=== PATIENT | female | born 1960 | race Asian ===

== ENCOUNTER 2018-11-05 08:00 | Emergency (ER) | payer MEDICAID ==
[~2018-11-05] VITALS: Ht 154.9 cm; Wt 69.0 kg
[~2018-11-05 08:00] MED LIST: DIPH-423 PO; FAMO-1 PO; LOPE-144 PO; ONDA4TAB12 PO; PRED20TA PO; [UNRECOGNIZED DRUG - CODE] PO
[2018-11-05 08:15] VITALS: BP 137/92
[2018-11-05] MEDS ORDERED: LIDOcaine 5% patch TP ONE (08:25)
[2018-11-05] MEDS ORDERED: GABA-530 PO (08:29)
== END 2018-11-05 08:46 | disposition home or self-care (01) ==
LOC: ER 08:00
DX: M54.81 Occipital neuralgia (principal); I10 Essential (primary) hypertension; E11.9 Type 2 diabetes mellitus without complications; Z79.899 Other long term (current) drug therapy
CPT/HCPCS: 99283

== ENCOUNTER 2019-02-09 10:20 | Emergency (ER) | payer MEDICAID ==
[~2019-02-09] VITALS: Ht 152.4 cm; Wt 71.0 kg
[~2019-02-09 10:20] MED LIST changes: +GABA-530 PO
[2019-02-09 10:23] VITALS: BP 127/83
--- NOTE | 2019-02-09 10:43 | NUR ---
awaiting ed provider.
[2019-02-09] MEDS ORDERED: ibuprofen tablet 400 MG TABLET PO ONE (10:55)
[2019-02-09] MEDS ORDERED: LIDO700A32 TOP (12:19)
== END 2019-02-09 12:24 | disposition home or self-care (01) ==
LOC: ER 10:21
DX: R07.89 Other chest pain (principal); I10 Essential (primary) hypertension; J45.909 Unspecified asthma, uncomplicated; E11.9 Type 2 diabetes mellitus without complications; Z79.899 Other long term (current) drug therapy
CPT/HCPCS: 71045; 99283

== ENCOUNTER 2019-05-19 04:35 | Emergency (ER) | payer MEDICAID ==
[~2019-05-19] VITALS: Ht 152.4 cm; Wt 70.0 kg
[~2019-05-19 04:35] MED LIST changes: +LIDO700A32 TOP
[2019-05-19 04:39] VITALS: BP 149/91
[2019-05-19] MEDS ORDERED: cyclobenzaprine 10mg tablet PO ONE (05:30)
[2019-05-19] MEDS ORDERED: ketorolac trometh inj. 60 MG/2 ML VIAL IM ONE (05:30)
[2019-05-19] MEDS ORDERED: CYCL-1 PO (05:40)
[2019-05-19] MEDS ORDERED: NAPR-56 PO (05:40)
== END 2019-05-19 06:08 | disposition home or self-care (01) ==
LOC: ER 04:36
DX: M54.40 Lumbago with sciatica, unspecified side (principal); I10 Essential (primary) hypertension; J45.909 Unspecified asthma, uncomplicated; E11.9 Type 2 diabetes mellitus without complications; Z79.899 Other long term (current) drug therapy
CPT/HCPCS: 72100; 96372; 99283; J1885

== ENCOUNTER 2021-04-14 08:53 | Emergency (ER) | payer MEDICAID ==
[~2021-04-14] VITALS: Ht 152.4 cm; Wt 72.7 kg
[~2021-04-14 08:53] MED LIST changes: +CYCL-1 PO
[2021-04-14 13:39] LABS: CLARITY,URINE SLIGHTLY CLOUDY (Clear); COLOR,URINE YELLOW (Yellow); GLUCOSE, URINE >=1000 mg/dl (Neg); KETONES,URINE NEGATIVE (Neg); LEUKOCYTE ESTERASE ,URINE NEGATIVE (Neg); NITRITES, URINE NEGATIVE (Neg); OCCULT BLOOD,URINE NEGATIVE (Neg); PH,URINE 5.5 (4.8-8.0); PROTEIN,URINE NEGATIVE (Neg); UROBILINOGEN,URINE 0.2 E.U/dL (0.2-1.0)
[2021-04-14 13:48] LABS: UA COLLECTION TYPE VOIDED
[2021-04-14 13:50] LABS: STARCH,URINE MANY /HPF (NEGATIVE)
[2021-04-14 13:51] VITALS: BP 121/75
[2021-04-14 13:51] LABS: BACTERIA,URINE NONE SEEN /HPF (Neg); RBC,URINE NONE SEEN /HPF (0-2); SQUAMOUS EPITHELIAL CELL,UR FEW /LPF (FEW); WBC,URINE 0-4 /HPF (0-4)
[2021-04-14] MEDS ORDERED: ORPH100T2 PO (14:43)
== END 2021-04-14 14:52 | disposition home or self-care (01) ==
LOC: ER 08:54
DX: S39.012A Strain of muscle, fascia and tendon of lower back, initial encounter (principal); M62.830 Muscle spasm of back; I10 Essential (primary) hypertension; J45.909 Unspecified asthma, uncomplicated; E11.9 Type 2 diabetes mellitus without complications; Z79.899 Other long term (current) drug therapy; X50.1XXA Overexertion from prolonged static or awkward postures, initial encounter; Y93.89 Activity, other specified; Y92.89 Other specified places as the place of occurrence of the external cause; Y99.9 Unspecified external cause status
CPT/HCPCS: 81001; 99283

== ENCOUNTER 2022-12-20 07:51 | Emergency (ER) | payer MEDICAID ==
[~2022-12-20] VITALS: Ht 152.4 cm; Wt 68.2 kg
[~2022-12-20 07:51] MED LIST changes: +ORPH100T4 PO
[2022-12-20 09:30] VITALS: PULSE 79
[2022-12-20] MEDS ORDERED: AMOX-117 PO (10:26)
[2022-12-20] MEDS ORDERED: PRED20TA PO (10:26)
[2022-12-20 10:33] VITALS: BP 101/63; RESP 14; TEMP 97.7; O2SAT 99
== END 2022-12-20 10:35 | disposition home or self-care (01) ==
LOC: ER 07:51
DX: J02.9 Acute pharyngitis, unspecified (principal); I10 Essential (primary) hypertension; J45.909 Unspecified asthma, uncomplicated; E11.9 Type 2 diabetes mellitus without complications; Z79.899 Other long term (current) drug therapy; Z79.2 Long term (current) use of antibiotics
CPT/HCPCS: 87081; 99283

== ENCOUNTER 2023-08-17 10:10 | Outpatient (CLI) | payer MEDICAID | END 2023-08-17 23:59 | disposition home or self-care (01) | LOC: RAD 10:10 | PROVIDERS: ATTEND Family Medicine | DX: M79.672 Pain in left foot (principal) | CPT/HCPCS: 73630 ==

== ENCOUNTER 2025-01-08 08:23 | Emergency (ER) | payer MEDICARE, MEDICAID ==
[~2025-01-08] VITALS: Ht 152.4 cm; Wt 74.7 kg
[~2025-01-08 08:23] MED LIST changes: +LIDO-52 TOP; -LIDO700A32 TOP; +ONDA-243 PO; -ONDA4TAB12 PO
[2025-01-08 08:24] VITALS: TEMP 97.9
[2025-01-08 08:56] LABS: MEAN PLATELET VOLUME 8.3 FL (7.4-10.4); RED CELL DISTRIBUTION WIDTH 13.1 % (11.5-14.5)
--- NOTE | 2025-01-08 09:10 | RADIOLOGY REPORT ---
CHEST RADIOGRAPH Indication: CP Technique: Single frontal view of the chest was obtained COMPARISON: CHEST,SINGLE VIEW on DOS: 02/09/19 FINDINGS: Lungs and pleural spaces are clear. Cardiac silhouette and isabell are within normal limits. Bones and soft tissues demonstrate no significant abnormality. IMPRESSION: No acute disease.
[2025-01-08] MEDS ORDERED: iohexol 300mg/ml 100ml inj. ONE (09:14)
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
[2025-01-08 09:16] LABS: CREATININE 0.77 MG/DL (0.40-0.90); PRO BRAIN NATRIURETIC PEPTIDE 56 PG/ML (0-125); TOTAL CARBON DIOXIDE 27.1 MMOL/L (24-32); eCRCL 52 ML/MIN; eGFR 75 ML/MIN
--- NOTE | 2025-01-08 09:34 | ELECTROCARDIOGRAPH REPORT ---
[facility] Test Date: 2025-01-08 Test Time: 08:33:35 Pat Name: NADEEM GOETZ Department: EMERGENCY ROOM Room: Gender: F Millwright Instructor: LUIS ARMANDO : 1960 Requested By: ERIBERTO VUONG Order Number: [id number] Reading MD: Measurements Intervals Mobile Rate: 97 P: 50 CO: 191 QRS: 18 QRSD: 83 T: 58 QT: 371 QTc: 472 Interpretive Statements Sinus rhythm Probable left atrial enlargement Baseline wander in lead(s) V3 Please click the below link to view image of tracing.
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
[2025-01-08 11:14] VITALS: BP 134/75; PULSE 98; RESP 18; O2SAT 98
== END 2025-01-08 11:17 | disposition home or self-care (01) ==
LOC: ER 08:23
DX: R07.89 Other chest pain (principal); V49.9XXA Car occupant (driver) (passenger) injured in unspecified traffic accident, initial encounter; Y93.89 Activity, other specified; Y92.89 Other specified places as the place of occurrence of the external cause; Y99.8 Other external cause status
CPT/HCPCS: 36415; 71045; 71250; 72125; 80053; 83690; 83880; 84484; 85025; 93005; 99285; Q9967; 73700